=== PATIENT | male | born 2000 | race Two or more races ===

== ENCOUNTER 2022-06-15 08:34 | Emergency (ER) | payer OTHER ==
[2022-06-15 08:45] VITALS: BP 145/67
[2022-06-15] MEDS ORDERED: lidocaine 1% 20 ML MDV SUBQ ONE (10:13)
[2022-06-15] MEDS ORDERED: BUPIVACAINE 0.5% PF 10 ML VIAL SUBQ STA (10:14)
[2022-06-15] MEDS ORDERED: PHENOL THROAT SPRAY 177 ML MM STA (11:07)
--- NOTE | 2022-06-15 11:07 | ED Physician Documentation ---
History of Present Illness - Stated complaint Stated Complaint: SEVERE TOE PX - Chief complaint Chief Complaint: General - History obtained from History obtained from: Patient - History of Present Illness Timing: How many weeks ago (5) - Additonal information Additional information: 21-year-old male with a history of ingrown toenails repeatedly has to ingrown t oenails and he is now having difficulty walking. He is coming to the emergency department today seeking treatment. He has had sectioning of his nails previously they have always grown back and I have always had problems with being ingrown. Review of Systems Constitutional: denies: Fever Respiratory: denies: Cough GI: denies: Vomiting, Diarrhea Musculoskeletal: reports: Extremity swelling, Pain with weight bearing Neurologic: denies: Generalized weakness, Focal weakness, Numbness PD PAST MEDICAL HISTORY - Past Medical History Past Medical History: Yes Musculoskeletal: Other Other Past Medical History: chronic R knee tendinitis - Past Surgical History Past Surgical History: No - Present Medications Home Medications: Ambulatory Orders Medication Instructions Recorded Confirmed No Known Home Medications 06/15/22 06/15/22 - Allergies Allergies/Adverse Reactions: Allergies Allergy/AdvReac Type Severity Reaction Status Date / Time No Known Drug Allergies Allergy Verified 06/15/22 08:45 - Social History Does the pt smoke?: No Smoking Status: Never smoker Does the pt drink ETOH?: No Does the pt have substance abuse?: No - Immunizations Immunizations are current?: Yes - POLST Patient has POLST: No PD ED PE NORMAL - Vitals Vital signs reviewed: Yes (hypertensive ) - General General: Alert and oriented X 3, No acute distress, Well developed/nourished - HEENT HEENT: Atraumatic, PERRL, EOMI - Respiratory Respiratory: No respiratory distress - Derm Derm: Normal color, Warm and dry, No rash - Extremities Extremities: No deformity, Other (both great toes have ingrown nails. The right is ingrown medially the left is ingrown laterally. The R is more inflamed. 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 Both great toes for infused with a mixture of lidocaine and bupivacaine for a digital block with excellent anesthesia. The right toenail was sectioned medially and the left toenail was sectioned laterally. The patient tolerated this well and bleeding was controlled. We did not have phenol for this procedure PD MEDICAL DECISION MAKING - ED course Complexity details: considered differential, d/w patient ED course: 21-year-old male with bilateral ingrown toenails requests sectioning and he tolerates this well. Unfortunately we do not have phenol in the emergency department and I have asked the patient to follow-up with podiatry in anticipation of needing a procedure again in the next several years . Departure - Departure Disposition: 01 Home, Self Care Clinical Impression: Ingrown toenail of both feet Condition: Stable Instructions: ED Ingrown Toenail Excised Follow-Up: JAQUELIN Christy [Provider Group] Comments: Henry, today it looks like you have ingrown toenails on both feet and we have excised the portion that was ingrown. We did not apply any phenol to the nail matrix. My recommendation is to follow-up with a supervisor printing and stamping with the expectation that when this occurs again the procedure should be done there. Forms: Activity restrictions Discharge Date/Time: 06/15/22 11:46
== END 2022-06-15 11:46 | disposition home or self-care (01) ==
LOC: ED 08:34
DX: L60.0 Ingrowing nail (principal)
CPT/HCPCS: 11750; 99282; A9270

== ENCOUNTER 2023-07-26 11:14 | Emergency (ER) | payer OTHER ==
--- NOTE | 2023-07-26 11:37 | ED Physician Documentation ---
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 He was short of breath but that has improved. It is worse if he takes deep breaths. He denies pedal edema or calf pain. No recent travel. He has no health problems and no first-degree relatives with family history of cardiac disease. PD PAST MEDICAL HISTORY - Past Medical History Past Medical History: No Musculoskeletal: Other - Past Surgical History Past Surgical History: Yes General: Appendectomy - Present Medications Home Medications: Ambulatory Orders Medication Instructions Recorded Confirmed No Known Home Medications 06/15/22 07/26/23 - Allergies Allergies/Adverse Reactions: Allergies Allergy/AdvReac Type Severity Reaction Status Date / Time No Known Drug Allergies Allergy Verified 06/15/22 08:45 - Social History Does the pt smoke?: No Smoking Status: Never smoker Does the pt drink ETOH?: No Does the pt have substance abuse?: No - Immunizations Immunizations are current?: Yes - POLST Patient has POLST: No PD ED PE NORMAL - Vitals Vital signs reviewed: Yes - General General: Alert and oriented X 3, No acute distress - HEENT HEENT: PERRL, EOMI - Neck Neck: Supple, no meningeal sign, No bony TTP - Cardiac Cardiac: RRR, No murmur - Respiratory Respiratory: No respiratory distress, Clear bilaterally, Other ([place] with deep breathing) - Abdomen Abdomen: Non tender - Extremities Extremities: No edema, No calf tenderness / cord - Neuro Neuro: Alert and oriented X 3, Normal speech Results - Vitals Vitals: Vital Signs - 24 hr 07/26/23 07/26/23 11:18 12:29 Temperature 36.6 C Heart Rate 75 60 Respiratory 16 15 Rate Blood Pressure 139/77 H 145/86 H O2 Saturation 100 99 Oxygen O2 Source Room air - EKG (time done) 1121 EKG releavant findings:: EKG personally interpreted by author of this note. Relevant findings are: Rate: Rate (enter#) (66) Rhythm: NSR [place]: Normal Intervals: Normal [place] QRS: Normal Ischemia: Normal ST segments. No: ST elevation c/w ischemia, ST depression - Labs Labs: Laboratory Tests 07/26/23 07/26/23 11:35 11:35 WBC 4.8 RBC 5.32 Hgb 15.4 Hct 45.4 MCV 85.3 MCH 28.9 MCHC 33.9 RDW 12.2 Plt Count 274 MPV 10.3 Neut # (Auto) 2.8 Lymph # (Auto) 1.4 L [place] # (Auto) 0.5 Eos # (Auto) 0.1 Baso # (Auto) 0.0 Absolute Nucleated RBC 0.00 Nucleated RBC % 0.0 Sodium 137 Potassium 3.7 Chloride 102 Carbon Dioxide 28 Anion Gap 7.0 BUN 14 Creatinine 1.0 Estimated GFR (MDRD) 95 Glucose 94 Calcium 9.9 Total Bilirubin 0.5 AST 24 ALT 36 Alkaline Phosphatase 92 Troponin I High Sens 2.3 Total Protein 7.6 Albumin 5.1 Globulin 2.5 Albumin/Globulin Ratio 2.0 Lipase 19 - Rads (name of study) 1v chest XR- NAD Relevant Findings:: Final report received, EMP independent interpretation of test PD Medical Decision Making - ED course Complexity details: reviewed results (CBC, CMP, lipase, troponin all normal/negative), considered differential (Heart Zero, Perc neg) Departure - Departure Disposition: 01 Home, Self Care Clinical Impression: Atypical chest pain Condition: Good Record reviewed to determine appropriate education?: Yes Instructions: ED Chest Pain Atypical Unkn Cause Comments: Diagnostic testing including EKG, chest x-ray, and troponin testing is normal/negative. Take ibuprofen per package instructions for pain. Call your doctor to arrange a follow-up appointment, make the next available appointment. In the interim, return anytime if worse or if new symptoms develop. Forms: Activity restrictions Discharge Date/Time: 07/26/23 12:30
[2023-07-26 11:41] LABS: BASOPHILS % (AUTO) 0.8 %; EOSINOPHILS # (AUTO) 0.1 10^3/uL (0.0-0.7); EOSINOPHILS % (AUTO) 1.3 %; HCT - HEMATOCRIT 45.4 % (42.0-52.0); HGB - HEMOGLOBIN 15.4 g/dL (14.0-18.0); LYMPHOCYTES # (AUTO) 1.4 10^3/uL (1.5-3.5); LYMPHOCYTES % (AUTO) 29.1 %; MEAN CORPUSCULAR HEMOGLOBIN 28.9 pg (27.0-31.0); MEAN CORPUSCULAR HGB CONC 33.9 g/dL (32.0-36.0); MEAN CORPUSCULAR VOLUME 85.3 fL (80.0-94.0); MEAN PLATELET VOLUME 10.3 fL (7.4-11.4); MONOCYTES # (AUTO) 0.5 10^3/uL (0.0-1.0); MONOCYTES % (AUTO) 11.1 %; NEUTROPHILS # (AUTO) 2.8 10^3/uL (1.5-6.6); NEUTROPHILS % (AUTO) 57.7 %; PLT - PLATELET COUNT 274 10^3/uL (130-450); RED BLOOD COUNT 5.32 10^6/uL (4.70-6.10); RED CELL DISTRIBUTION WIDTH 12.2 % (12.0-15.0); WHITE BLOOD COUNT 4.8 x10^3/uL (4.8-10.8)
--- NOTE | 2023-07-26 11:46 | XRAY Report ---
PROCEDURE: Chest 1 View X-Ray INDICATIONS: Chest Pain TECHNIQUE: One view of the chest was acquired. COMPARISON: None. FINDINGS: Surgical changes and devices: None. Lungs and pleura: No pleural effusions or pneumothorax. Lungs are clear. Mediastinum: Mediastinal contours appear normal. Heart size is normal. Bones and chest wall: No suspicious bony lesions. Overlying soft tissues appear unremarkable. IMPRESSION: No acute process. Reviewed by: Ervin Herring MD on 07/26/2023 11:45 AM [facility] Approved by: Ervin Herring MD on 07/26/2023 11:45 AM [facility] Station ID: [id number]
[2023-07-26] MEDS ORDERED: ACETAMINOPHEN 500 MG TABLET PO STA (11:52)
[2023-07-26] MEDS ORDERED: IBUPROFEN 800 MG TABLET PO STA (11:52)
[2023-07-26 11:59] LABS: ALBUMIN 5.1 g/dL (3.2-5.5); BILIRUBIN,TOTAL 0.5 mg/dL (0.2-1.0); CALCIUM 9.9 mg/dL (8.5-10.3); POTASSIUM 3.7 mmol/L (3.5-4.5); TOTAL PROTEIN 7.6 g/dL (6.4-8.9)
[2023-07-26 12:11] LABS: TROPONIN I HIGH SENSITIVITY 2.3 ng/L (2.3-19.7)
[2023-07-26 12:39] VITALS: BP 145/86; O2SAT 99
== END 2023-07-26 12:30 | disposition home or self-care (01) ==
LOC: ED 11:14
DX: R07.89 Other chest pain (principal)
CPT/HCPCS: 36415; 71045; 80053; 83690; 84484; 85025; 93005; 99283; 99284; A9270